=== PATIENT | male | born 1950 | race Caucasian/White ===

== ENCOUNTER 2016-05-15 17:17 | Emergency (ER) | payer BC ==
--- NOTE | 2016-05-15 19:02 | RAD ---
EXAMINATION:WRIST- RIGHT 3 VIEWS CLINICAL INDICATION: Fall from ladder. Right wrist pain. Initial encounter. COMPARISON: None FINDINGS: There is a comminuted intra-articular fracture of the distal right radius. There is a T-shaped fracture with a vertical extension into the articular surface. Slight impaction is also noted at the fracture site. There is a transverse comminuted fracture of the ulnar styloid process as well. The carpal bones appear intact. The radiocarpal and intercarpal joint space relationships of the right wrist are maintained. No soft tissue abnormality is identified. IMPRESSION: Comminuted impacted intra-articular fracture distal right radius. There is a transverse comminuted fracture of the ulnar styloid process as well.
[2016-05-15] MEDS ORDERED: OXYCODONE HCL 5 MG TABLET ONE (20:30)
[2016-05-15] MEDS ORDERED: DIPHTH,PERTUSS(ACELL),TET VAC 0.5 ML VIAL IM V ONE (20:31)
--- NOTE | 2016-05-15 20:47 | CT ---
EXAMINATION: Noncontrast cranial CT. CLINICAL INDICATION: Fall from ladder. Head injury. On blood thinners. TECHNIQUE: A noncontrast cranial CT scan was obtained. Axial images were acquired from just above the vertex through the skull base. 4 mm stacked axial, coronal, and sagittal reconstructions were reviewed. COMPARISONS: None FINDINGS: The CSF containing spaces are prominent throughout. There is diminished attenuation within the periventricular white matter tracts bilaterally. No acute intercranial hemorrhage, mass or mass effect is identified. No extra-axial fluid collections are detected. The visualized segments of the posterior fossa are unremarkable. The cerebellar pontine angle cisterns are symmetric. The osseous structures are intact. The paranasal sinuses are clear. The visualized portions of the orbits are unremarkable. The mastoid sinuses are normal and symmetric. IMPRESSION: Moderate global diffuse atrophy with microvascular ischemic changes. No acute intracranial abnormalities are identified. The findings were uploaded to the electronic medical record for review at approximately 8:47 PM 05/15/2016
[2016-05-15 20:53] LABS: ABSOLUTE NEUTROPHIL COUNT 7.2 K/mm3 (1.8-7.7); BASO % 0.3 % (0.2-1.0); EOS # 0.1 (0.0-0.5); EOS % 0.5 % (0.9-2.9); HEMATOCRIT 44.8 % (32.0-52.0); HEMOGLOBIN 15.5 gm/l (14.0-18.0); IMM NEUT% 0.2 % (0-1); LYMPH # 1.2 (1.0-4.8); LYMPH % 13.5 % (15-45); MEAN CELL VOLUME 93.7 fl (80.0-94.0); MEAN CORPUSCULAR HEMOGLOBIN 32.4 pg (27.0-31.0); MEAN CORPUSCULAR HGB CONC 34.6 g/dl (33.0-37.0); MEAN PLATELET VOLUME 12.2 fl (7.4-10.4); MONO # 0.7 (0.0-0.8); MONO % 7.2 % (4-12); NEUT % 78.3 % (43-75); PLATELET COUNT 162 K/mm3 (130-400); RED CELL DISTRIBUTION WIDTH 13.4 % (11.5-14.5)
[2016-05-15 21:04] LABS: INR 1.11; PROTHROMBIN TIME 11.8 SECONDS (9.3-11.4)
--- NOTE | 2016-05-15 21:07 | RAD ---
EXAMINATION:LOWER LEG RIGHT Two- Views CLINICAL INDICATION: Fall from ladder possibly 6 to 8 ft. Leg pain. Initial encounter. COMPARISON:None FINDINGS: No fracture or focal destruction is identified. The joint space relationships of the knee and ankle are maintained small amount of pretibial soft tissue swelling is noted. No radiopaque foreign bodies identified. IMPRESSION: No fracture is identified. There is no evidence of dislocation. Pretibial soft tissue swelling is noted.
--- NOTE | 2016-05-15 21:08 | RAD ---
EXAMINATION:WRIST- LEFT 3 VIEWS CLINICAL INDICATION: Fall from ladder. Left wrist pain. Initial encounter. Comparison: None FINDINGS: There is a triquetral fracture. Slight comminution is noted. Dorsal chip fractures are evident. The remainder the osseous structures appear intact. The radiocarpal and intercarpal joint space relationships of the left wrist are maintained. No soft tissue abnormality is identified. IMPRESSION: Triquetral fracture.
[2016-05-15 21:09] LABS: CALCIUM 9.3 mg/dL (8.6-10.3)
== END 2016-05-15 22:43 | disposition home or self-care (01) ==
LOC: ED 17:17
DX: S01.511A Laceration without foreign body of lip, initial encounter (principal); S52.611A Displaced fracture of right ulna styloid process, initial encounter for closed fracture; S62.112A Displaced fracture of triquetrum [cuneiform] bone, left wrist, initial encounter for closed fracture; S02.5XXA Fracture of tooth (traumatic), initial encounter for closed fracture; S09.90XA Unspecified injury of head, initial encounter; I10 Essential (primary) hypertension; Z79.82 Long term (current) use of aspirin; Z23 Encounter for immunization; W11.XXXA Fall on and from ladder, initial encounter
CPT/HCPCS: 90715; 85025; 80048; 85610; 73590; 73110 ×2; 70450; 90471; 99284 ×2; 12011 ×2; 29105; 29125; A9270

== ENCOUNTER 2016-06-04 06:48 | Day surgery (SDC) | payer BC ==
[~2016-06-04 06:48] MED LIST: CEFAZOLIN SODIUM 2 GRAM PREMIX 100 ML IV ONE; IV START KIT ONE; LACTATED RINGERS 1,000 ML ONE
[2016-06-04] MEDS ORDERED: CEFAZOLIN SODIUM 2 GRAM PREMIX 100 ML IV PRN (07:00)
[2016-06-04] MEDS ORDERED: MIDAZOLAM HCL 5 MG/5 ML VIAL ONE (07:10)
[2016-06-04] MEDS ORDERED: FENTANYL 5 ML ONE (07:10)
[2016-06-04] MEDS ORDERED: ROPIVACAINE 0.5% 30 ML VIAL ONE (07:37)
[2016-06-04] MEDS ORDERED: LIDOCAINE 2% (PRES FREE) 5 ML VIAL ONE (07:38)
--- NOTE | 2016-06-04 08:09 | HP ---
DATE OF CLINIC: 06/01/16 MARQUIS GRADY : 1950 PLANNED PROCEDURE: Right Distal Radius Open Reduction Internal Fixation DATE OF SURGERY: June 04, 2016 SURGEON: Alex Olsen M.D. PCP:Dr.Aaron Lafleur HISTORY OF PRESENT ILLNESS Marquis Grady is a 66 year old male. * Medication list reviewed with patient allergy list reviewed with patient. * Has not tried NSAIDS * Has not tried Physical Therapy * Has not tried Injections The patient is a 66-year-old male who is RHD who returns to the office for consultation regarding his right wrist fracture that has an intra-articular split. He is in a cast at this time and would like to talk today about the risks and benefits of surgery. Previously he has spoken with Johnathan Nesbitt PA-C about his condition and is leaning toward having surgery. He has stopped his anti-coagulation and is still taking flecanide for his A-fib. The patient fell initially off a ladder when it slipped on ice. His pain is manageable. He has been doing fine with the left wrist splint and in a right short arm cast. His initial consultation as follows. This 66-year-old right hand dominant male is seen today as a referral from the emergency department, having injured both of his wrists. Patient states that on 05/15/2016, he was working on the roof of a shed, in the ice, on a ladder. Patient slipped from the ladder and fell, landing on his outstretched arms. Then, breaking his fall, he did end up hitting his mouth and chipped a tooth and split his lip a little bit. He was not knocked unconscious. Patient denies significant head or neck injury, although from emergency room reports he was ruled out with a cervical spine series. Patient was placed in bilateral upper extremity splints and referred here for definitive management. Patient states that by far, his right wrist is more painful. He has pain predominantly on the radial side, but also has some ulnar-side pain. It does not extend into his fingers. It does not extend proximal to his elbow. He denies shoulder pain. Denies bilateral elbow pain. Left wrist is more sore on the ulnar aspect. He denies significant past medical history with regards to his wrist. He denies numbness or tingling. After discussion and review of treatment options, both nonoperative and surgical, he has elected to proceed with surgery and presents today preoperatively. CURRENT MEDICATION * Adult Aspirin EC Low Strength 81 MG Tablet Delayed Release 1 once a day 0 days, 0 refills * Flecainide Acetate 100 MG Tablet [address] Sheng Cardoso, 0 days, 0 refills * Losartan Potassium 50 MG Tablet [address] Jens Lafleur in [place], 0 days, 0 refills * OxyCODONE HCl 5 MG Tablet as needed 0 days, 0 refills * Xarelto 20 MG Tablet [address] Isai Muller, 0 days, 0 refills ALLERGIES * No Known Allergies REVIEW OF SYSTEMS Systemic: No fever and no recent weight change. Cardiovascular: No chest pain or discomfort and no palpitations. Pulmonary: No cough and no wheezing. Gastrointestinal: No nausea, no vomiting, no abdominal pain, and no diarrhea. Neurological: No motor disturbances and no sensory disturbances. Skin: No skin lesions and no rash. PHYSICAL FINDINGS * Vitals taken 06/01/2016 10:17 am BP Cuff Size Regular Pulse Rhythm Regular Temp-Oral 98 F 96 - 101 Height 65 in 64 - 74 Weight 221 lbs 123 - 215 Body Mass Index 36.8 kg/m2 Body Surface Area 2.06 m2 Pain Level 2 General Appearance: * Well developed. * In no acute distress. Eyes: General/bilateral: Extraocular Movements: * Normal. Lungs: * Clear to auscultation. * No wheezing was heard. * No rales/crackles were heard. Cardiovascular: Heart Rate And Rhythm: * Heart rate was normal. * Heart rhythm regular. Abdomen: Palpation: * Abdominal non-tender. Neurological: * Oriented to time, place, and person. Motor: * Dominant Hand = Right Hand. The patient's right short arm cast was removed today. He has moderate swelling and resolving bruising. He is tender to touch over his right distal radius GENERAL: Patient is alert and oriented, in no acute distress. His left hand splint was removed. LEFT UPPER EXTREMITY: Left wrist reveals minimal swelling and no significant ecchymosis. He is non-tender at the left elbow and extends down the forearm. He is non-tender at the radial styloid. Non-tender at the snuff box. He does not have any tenderness over his ulnar styloid, but just distal to this and the first and second row carpal on the ulnar side does have minimal tenderness. He has full flexion and extension of the MCP, PIP and DIP joints of all fingers. Full thumb abduction, extension and flexion. Left wrist [id number] is to 30 degrees of flexion and 10degrees of extension. He has 5 degrees of radial and ulnar deviation without significant pain. He can fully supinate and pronate his left wrist. Pulses are 2+. Capillary refill less than 2 seconds. Sensation is intact in the distribution of median, ulnar, and radial nerves. . PHYSICAL FINDINGS RIGHT EXTREMITY RIGHT UPPER EXTREMITY: The patient's right wrist was examined with his cast off. He has bruising and swelling but this would not preclude surgery. He is tender on the volar and dorsal aspects of his right wrist. He has limited passive ROM and active ROM due to pain. He is non-tender at the elbow, but does have pain at the radial styloid, distal radial ulnar joint and over the ulnar styloid. No snuff box tenderness. The rest of the hand is non-tender. He has full motion of his MCP, PIP and DIP joints. Elbow AROM Flexion: 0 to 130 degrees Wrist Flexion: limited due to pain Extension: limited due to pain Supination: limited due to pain Pronation: limited due to pain Sensation (Wrist): gross sensation to light touch is present Median: Normal Ulnar: Normal Radial: Normal Vascular Exam Radial Pulse: 2+ TESTS X-rays of his right wrist were viewed on [facility] from 05.27.2016. The patient has an ulnar styloid frx and an intra-articular split of the distal radius. He has a separate dorsal piece but neutral position on the lateral view. X-rays of his left wrist from 05.27.2016were reviewed. They show the radius and ulna to be intact. He does have minimally displaced dorsal triquetral fracture and associated soft-tissue swelling. Otherwise the hand and wrist are normal on the left. ASSESSMENT Impacted intraarticular fracture of the right distal radius / ulna PLAN Alex Olsen MD ordered the following therapy * Open treatment of fracture of distal radius -right ORIF We will plan for open treatment of right distal radius fracture with open reduction internal fixation volar plate. Particularly intraoperative complications reviewed with him particularly with regards to infection, neurovascular injury, residual wrist impairment with regards to range of motion and strength. It should be noted that the patient has been off of his Xarelto for atrial fibrillation last Wednesday as well as aspirin. THERAPY * Patient fall risk screen positive. * Patient eligible for fall risk assessment. * Patient received fall risk assessment. SURGICAL CONSENT We have discussed surgical options including right distal radius intra-articular fracture open reduction and internal fixation vs nonoperative management. I spoke to the patient about his options. I think he has lost some radial height and inclination due to his fracture. I told him the main goal in surgery is to try to minimize post-traumatic arthritis. I told him that I could not guarantee that this would definitely improve his results and long-term function. I spoke to him about the surgical procedure and talk to him about jodi-operative risks of infection, fracture non-union, traumatic arthrtis, persistent wrist stiffness, need for hardware removal, possible injury to both flexor and extensor tendons after surgery and later from tendons rubbing again the metal hardware years after surgery. We spoke about anesthesia risks especially with his increased risk of hematoma (due to his anti-coagulation) and stroke (hx of a-fib but controlled on flecanide). He states that he understands this and signed the consent form. We then spoke about the post-op rehab plan. The patient was counseled in detail regarding the diagnosis, treatment options available, prognosis of each treatment option and the potential risks and complications. The risks of surgery include, but are not limited to, anesthetic , neurovascular complications, pulmonary embolism, deep vein thrombosis, wound dehiscence, failure of any or all of the discussed procedures, infection of the joint or surrounding soft tissue, need for revision surgery, chronic pain, limitations in activities of daily living, inability to return to work, and loss of normal range of motion or functional use of the extremity. There is the possibility of failure over time that may require additional operative or nonoperative treatment. The patient acknowledged that there are a number of perioperative risks not mentioned here and would still like to proceed. The patient is aware of and understands these risks, and wishes to proceed with the proposed surgical procedure and other procedures as indicated at the time of surgery. I reviewed the patient's current EKG with the hospitalist who did not recommendtions jodi-operatively. The preoperative instructions were reviewed with the patient and all questions were answered. KRISTIN/екатерина
[2016-06-04] MEDS ORDERED: ROCURONIUM BROMIDE 10 MG/ML DOSE IV ONE (08:25)
[2016-06-04] MEDS ORDERED: PROPOFOL 40 ML IV ONE (08:25)
[2016-06-04] MEDS ORDERED: EPHEDRINE SULFATE UD SYR 25 MG 25 MG/5 ML SYRINGE IV ONE ×2 (09:07→09:23)
[2016-06-04] MEDS ORDERED: BUPIVACAINE 0.5% (PRES FREE) 30 ML VIAL ONE (09:10)
[2016-06-04] MEDS ORDERED: DIPHENHYDRAMINE HCL 50 MG/1 ML VIAL ONE (09:17)
[2016-06-04] MEDS ORDERED: DEXAMETHASONE SOD PHOS 4 MG/1 ML VIAL ONE (09:17)
[2016-06-04] MEDS ORDERED: ONDANSETRON 4 MG/2ML 2 ML VIAL ONE (09:17)
[2016-06-04] MEDS ORDERED: PHENYLEPHRINE 10 MG/1 ML (1%) VIAL ONE (09:36)
[2016-06-04] MEDS ORDERED: HYDROMORPHONE HCL 1 MG/ML SYRINGE IV PRN (09:39)
[2016-06-04] MEDS ORDERED: NALOXONE HCL 0.4 MG/ML VIAL IV PRN (09:39)
[2016-06-04] MEDS ORDERED: ONDANSETRON 4 MG/2ML 2 ML VIAL IV PRN (09:39)
[2016-06-04] MEDS ORDERED: FENTANYL 100 MCG/2 ML VIAL IV PRN (09:39)
[2016-06-04] MEDS ORDERED: ATROPINE SULFATE 0.4 MG/1 ML VIAL IV PRN (09:39)
[2016-06-04] MEDS ORDERED: PROMETHAZINE HCL 25 MG/ML VIAL IM PRN (09:39)
[2016-06-04] MEDS ORDERED: LACTATED RINGERS 1,000 ML IV SCH ×2 (09:45→13:30)
--- NOTE | 2016-06-04 12:20 | PCMBPN ---
Brief Post Op Note: Date of Procedure: 06/04/16 Preoperative Diagnosis: 1. right distal radius intra-articular fracture Postoperative Diagnosis: 1. right distal radius 2-part intra-articular fracture Procedure: right distal radius 2-part intra-articular fracture open reduction and internal fixation Surgeon: Alex Olsen MD Assist: [place] SU Anesthesia: GETA, right single shot block, and 10mL 0.5% marcaine without epi injection into the volar incision Findings: Pt had a lunate facet fracture along with a separate radial styloid fracture. Frx was pinned with k-wires prior to placing a standard right accumed volar plate. Locking screws placed distally and cortical screws placed proximally. Condition: extubated, stable vitals, transferred to pacu Complications: None IV Fluids: 2000 mLs of LR Urine Output: 0 mLs Estimated Blood Loss: 20 mLs Tourniquet Time: 55 min at 250mmHg Specimens: [N/A] Implants: Acumed distal radius plate Drains: [N/A] PLAN: NWB on the RUE x 6 weeks. Sling for comfort. Oxycodone for pain control and keflex for jodi-op prescriptions. Will restart anti-coagulation on POD#1
--- NOTE | 2016-06-04 13:01 | RAD ---
ADDENDUM #1 COMPARISON: Right wrist 3 views 05/27/2016. Right wrist 2 views intraoperative 06/04/2016. ORIGINAL REPORT WRIST RIGHT 2 VIEWS COMPARISON: Left wrist 3 views 05/27/2016. Left wrist 2 views intraoperative 06/04/2016. HISTORY: 3 postop open reduction internal fixation of distal right radius fracture. FINDINGS: Views: PA and lateral right wrist. Bones: No change since the intraoperative radiograph. Comminuted intra-articular fracture of the distal right radius. Satisfactory position of the anterior plate and screw hardware fixation device. Joint contiguity is restored. No change in mildly displaced fracture of the ulnar styloid process. Joints: Normal. Soft tissues: Normal. IMPRESSION: 1. Satisfactory appearance after open reduction internal fixation of comminuted intra-articular fracture of the distal right radius.
--- NOTE | 2016-06-04 13:02 | RAD ---
ADDENDUM #1 HISTORY: Intraoperative radiographs. Open reduction internal fixation of intra-articular fracture, distal RIGHT radius. Bones: Satisfactory reduction of comminuted intra-articular fracture the distal RIGHT radius. Satisfactory position of the hardware. ORIGINAL REPORT WRIST RIGHT 2 VIEWS COMPARISON: Left wrist 3 views, 05/27/2016 HISTORY: Intraoperative radiographs. Open reduction internal fixation of intra-articular fracture, distal left radius. Fluoroscopy time: 80.7 seconds FINDINGS: Views: PA and lateral right wrist. Bones: Satisfactory reduction of comminuted intra-articular fracture the distal left radius. Satisfactory position of the hardware. Joints: Normal. Soft tissues: Normal. IMPRESSION: 1. Satisfactory reduction of comminuted intra-articular fracture of the distal left radius. Satisfactory hardware position. 2. No change in mildly displaced fracture of the ulnar styloid process.
[2016-06-04] MEDS ORDERED: ACETAMINOPHEN 325 MG TABLET PO PRN (13:25)
[2016-06-04] MEDS ORDERED: OXYCODONE HCL 5 MG TABLET PO PRN (13:25)
[2016-06-04] MEDS ORDERED: DIPHENHYDRAMINE HCL 50 MG/1 ML VIAL IV PRN (13:25)
--- NOTE | 2016-06-05 10:08 | OP ---
Marquis GRADY : 1950 [id number] DATE OF PROCEDURE: June 04, 2016 PREOPERATIVE DIAGNOSES: Right distal radius comminuted intra-articular fracture and ulna styloid fracture. POSTOPERATIVE DIAGNOSES: Right intra-articular two-part distal radius intra-articular comminuted fracture and ulna styloid fracture. PROCEDURE: RIGHT COMMINUTED DISTAL RADIUS TWO-PART INTRA-ARTICULAR FRACTURE OPEN REDUCTION INTERNAL FIXATION. SURGEON: Alex Olsen M.D. DIRECTOR OF PHYSICAL SECURITY: Karsten Talbert ANESTHESIA: General along with a right supraclavicular single shot block for postoperative pain control and 10 mL of 0.5% Marcaine without epinephrine injected by the volar incision for postoperative pain control. FINDINGS: As seen on the preoperative x-rays the patient had a lunate facet fracture, a comminuted articular segment with a separate radial styloid piece. After the fracture was exposed it was pinned with two separate K-wires through a separate incision through the radial styloid. Then checking to make sure that the AccuMed volar plate was ulnar enough to support the lunate facet nonlocking screws were placed proximally, distally locking screws replaced supporting the articular surface. X-rays were obtained in the AP and lateral planes confirming that the screws were extra-articular. CONDITION: The patient was extubated with stable vital signs and transferred to the PACU. COMPLICATIONS: None. INTRAVENOUS FLUIDS: 2000 mL of Lactate Ringer's. URINE OUTPUT: 0 mL ESTIMATED BLOOD LOSS: 20 mL SPECIMENS: N/A TOURNIQUET TIME: 55 minutes at 250 mmHg. IMPLANTS: The patient had an AccuMed right standard distal radius plate. DRAINS: N/A PLAN: The patient will be nonweightbearing on the right upper extremity for six weeks after surgery, a sling for comfort, oxycodone for pain control, Keflex for perioperative prescriptions. We will plan to start Xarelto on postoperative day number one. INDICATIONS: The patient is a 66-year-old male who was on a ladder when it was icy who sustained a fall resulting in this placed comminuted intra-articular distal radius and ulna styloid fracture. The patient and I spoke about his injury. I told him that my recommendation based on his activity level and the amount of comminution would be to have an open reduction internal fixation. The main goal was to help reduce the risk of posttraumatic arthritis. I told him that prior to surgery that this will not make the risk zero. There are still risks that this could mean more stiffness as well as poor function after surgery. We reviewed the risk of infection, injury to the surrounding nerves and blood vessels as well as the need to potentially remove the plate. I told him that any time we placed this type of hardware near the flexor and extensor tendons there is always the risk for flexor and extensor tendons injury in the perioperative period or even up to a year later. After talking to the patient at length regarding these risks as well as the benefits he decided to proceed with surgery. PROCEDURE DESCRIPTION: The patient was seen in the preoperative area where I confirmed that the right side was the correct side. I removed his short arm cast without incident or complication and confirmed that there was not too much swelling that would preclude surgery. Next, with his right signed he was seen by the anesthesia team who talked to him about moving forward with a supraclavicular single shot nerve block that would help with this postoperative pain control. This was performed under ultrasound guidance without complication. Next, the patient brought from the preoperative area to the operating theater where he was placed supine on the standard operating room table. A safety belt was placed and SCDs for intraoperative DVT prophylaxis. At this point, the patient had intravenous sedation and was intubated for a general anesthetic for the surgery. The bed was rotated 90 degrees. A nonsterile tourniquet was placed on his right arm and a sterile prep was performed with a chlorhexidine scrub, and then paint. The final time out was performed confirming that the right side was the correct side, that we had all of the necessary equipment and I confirmed with operating room staff that we were ready to begin. An Esmarch was used to exsanguinate the arm and the tourniquet was elevated. It was set at 250 mmHg. With the tourniquet elevated I then andrea an incision approximately 8 cm long on the volar aspect of the wrist over the interval of the FCR and the radial artery. Once this incisional line was drawn, an Ioban was placed. I then used a #10 blade to incise the skin. The FCR was located, it was retracted laterally. The base of the FCR sheath and the radial artery was palpated. I used a second blade to incise the skin. A Weitlaner retractor was placed. I then dissected between the FPL and the pronator quadratus. This was lifted off the bone. The patient had a very distal comminuted fracture. The brachial radialis was lifted off gently with a blunt 90 degree right angle clamp. The patient had two fragments of the radial styloid with a separate lunate facet piece. I proceeded to distract the fracture using a curette. I cleaned the fracture site out. I then proceeded to make a separate incision over the tip of the radial styloid. I made an incision in the skin superficially and then spread down to avoid the superficial radial nerve. I would later place a k-wire through this incision. I then performed a reduction pulling traction of the wrist flexion as well as some translation with my thumb on the volar fracture piece. I placed a K-wire through the radial styloid to the shaft itself and check my reduction. With this K-wire in place I then selected a wide AccuMed right distal radius plate. It was difficult to have this plate fit appropriately to the lunate facet of the distal radius, so I went with a more standard distal radius plate. I then proceeded to place a temporary K-wire posterior to anterior proximally as well as distally, checking my location on the plate on the c-arm I confirmed that I was in an ok position. I elected to place a 3.5 mm screw in the oval hole and then adjust my ulnar to lateral position of the plate so that it could support the undersurface of the lunate facet and the separate fragment. Once this positioning was coordinated both on the AP and lateral planes I proceeded to place distal K-wires holding my reduction with the wrist in neutral orientation on the lateral. I proceeded to place a second proximal 3.5 mm cortical screw sucking the plate down to the bone. I then proceeded to place a distal 2.8 mm screw in the more radial segment. I then proceeded to place distal locking screws swapping out the non-lock screw for a locking screw. Once these screws were in place I then placed two screws in the radial styloid taking C-arm images confirming that these were in the styloid itself. I took the wrist through a range of motion. I felt that the wrist had good flexion and extension and under fluoroscopy confirmed that the screws were extra-articular. On the lateral view by took care to look at the dorsal surface of the radius making sure the screws were not too long. I purposely left the screw shorter distally to avoid Arleen's tubercle in hopes that there would not be collapse and or rubbing of any extensor tendons. Once this plate was secured, I irrigated and then proceeded to close the quadratus back over the distal radius. The fascia of the FCR was left open. I then proceed to close the subcutaneous tissue with interrupted #0, interrupted #2-0 and interrupted #3-0 Vicryl. I then placed a running Monocryl. The styloid suture hole was closed with a Nylon. At the end of the case all sponge and needle counts were correct. The patient had DSD applied. A plaster volar splint was applied for the patient's comfort. The patient was awoken without difficulty. Prior to placing the Monocryl I did inject 10 mL 0.5% Marcaine without epinephrine. I answered all of the family's questions and I will plan to have the patient return to the office in one week. At that time we will take off the splint, place him in a short arm cast. Job [id number] CC: [facility]
== END 2016-06-04 14:50 | disposition home or self-care (01) ==
LOC: SDC 06:48
PROVIDERS: ATTEND Orthopaedic Surgery
PROC: 0PSH04Z Reposition Right Radius with Internal Fixation Device, Open Approach (ICD-10-PCS; principal; 2016-06-04)
DX: S52.531A Colles' fracture of right radius, initial encounter for closed fracture (principal); S52.611A Displaced fracture of right ulna styloid process, initial encounter for closed fracture; I48.91 Unspecified atrial fibrillation; W11.XXXA Fall on and from ladder, initial encounter; Y93.89 Activity, other specified; Y92.89 Other specified places as the place of occurrence of the external cause; Z79.82 Long term (current) use of aspirin
CPT/HCPCS: 25608; C1713